=== PATIENT | male | born 1950 | race Caucasian/White ===

== ENCOUNTER → 2020-03-17 12:21 | Outpatient (BNVA) | payer MEDICARE, SELFPAY | PROVIDERS: PCP Nurse Practitioner Family; Visit Provider Nurse Practitioner Family | DX: E11.9 Type 2 diabetes mellitus without complications (principal); I10 Essential (primary) hypertension; E55.9 Vitamin D deficiency, unspecified; R53.83 Other fatigue; E78.2 Mixed hyperlipidemia; L57.0 Actinic keratosis | CPT/HCPCS: 80053; 80061; 81001; 82306; 83036; 84443; 85025 ==

== ENCOUNTER → 2020-03-20 10:20 | Outpatient (BNVA) | payer MEDICARE, SELFPAY | PROVIDERS: PCP Nurse Practitioner Family; Visit Provider Family Medicine | DX: C44.629 Squamous cell carcinoma of skin of left upper limb, including shoulder (principal) | CPT/HCPCS: 88305 ==

== ENCOUNTER → 2020-08-25 11:39 | Outpatient (BNVA) | payer MEDICARE, SELFPAY | PROVIDERS: PCP Nurse Practitioner Family; Visit Provider Nurse Practitioner Family | DX: E11.9 Type 2 diabetes mellitus without complications (principal) | CPT/HCPCS: 80053; 83036; 83735; 84100; 85025 ==

== ENCOUNTER → 2020-10-13 08:48 | Outpatient (BNVA) | payer MEDICARE, SELFPAY | PROVIDERS: PCP Nurse Practitioner Family; Referring Provider Nurse Practitioner Family; Visit Provider Internal Medicine | DX: E11.40 Type 2 diabetes mellitus with diabetic neuropathy, unspecified (principal); E11.649 Type 2 diabetes mellitus with hypoglycemia without coma; E11.65 Type 2 diabetes mellitus with hyperglycemia; E78.5 Hyperlipidemia, unspecified; I10 Essential (primary) hypertension | CPT/HCPCS: 99205 ==

== ENCOUNTER → 2020-11-04 10:12 | Outpatient (BNVA) | payer MEDICARE, SELFPAY | PROVIDERS: PCP Nurse Practitioner Family; Visit Provider Family Medicine | DX: G25.82 Stiff-man syndrome (principal) | CPT/HCPCS: 85651; 86431 ==

== ENCOUNTER → 2020-12-15 08:43 | Outpatient (BNVA) | payer MEDICARE, SELFPAY | PROVIDERS: PCP Nurse Practitioner Family; Visit Provider Internal Medicine | DX: E11.42 Type 2 diabetes mellitus with diabetic polyneuropathy (principal); E11.649 Type 2 diabetes mellitus with hypoglycemia without coma; E11.65 Type 2 diabetes mellitus with hyperglycemia; K27.9 Peptic ulcer, site unspecified, unspecified as acute or chronic, without hemorrhage or perforation; R10.13 Epigastric pain | CPT/HCPCS: 99215 ==

== ENCOUNTER → 2020-12-16 10:35 | Outpatient (BNVA) | payer MEDICARE, SELFPAY | PROVIDERS: PCP Nurse Practitioner Family; Visit Provider Internal Medicine | DX: E11.9 Type 2 diabetes mellitus without complications (principal) | CPT/HCPCS: 83036 ==

== ENCOUNTER → 2021-01-13 08:41 | Outpatient (BNVA) | payer MEDICARE, SELFPAY | PROVIDERS: PCP Nurse Practitioner Family; Visit Provider Internal Medicine | DX: R76.8 Other specified abnormal immunological findings in serum (principal); Z79.899 Other long term (current) drug therapy; Z11.59 Encounter for screening for other viral diseases; G24.9 Dystonia, unspecified; M48.00 Spinal stenosis, site unspecified; L40.9 Psoriasis, unspecified | CPT/HCPCS: 72202; 73120; 80053; 82085; 82310; 82550; 82728; 83540; 83970; 84100; 85025; 86140; 86431; 86704; 86803; 86812; 87340; 99204 ==

== ENCOUNTER 2021-01-13 10:27 | Outpatient (CLI) | payer MEDICARE, SELFPAY ==
--- NOTE | 2021-01-13 10:37 | XR_ITS ---
WS: [id number] TECHNIQUE: 2 views of the right hand CLINICAL INFORMATION: R76.8 - Other specified abnormal immunological findings in serum COMPARISON: None. FINDINGS: Normal metacarpals. Normal MCP joint. Metacarpal heads are normal in appearance. Normal PIP and DIP j oints. No evidence of acute fracture or dislocation. Radiocarpal joint: Normal. Carpal bones: Normal. XR/XR hand RT 2V [id number] IMPRESSION: No significant erosive changes.
--- NOTE | 2021-01-13 10:37 | XR_ITS ---
WS: [id number] TECHNIQUE: 2 views of the left hand CLINICAL INFORMATION: R76.8 - Other specified abnormal immunological findings in serum COMPARISON: None. FINDINGS: Normal metacarpals. Normal MCP joint. Metacarpal heads are normal in appearance. Normal PIP and DIP j oints. No evidence of acute fracture or dislocation. Radiocarpal joint: Normal. Carpal bones: Normal. XR/XR hand LT 2V [id number] IMPRESSION: No significant erosive changes.
--- NOTE | 2021-01-13 10:37 | XR_ITS ---
WS: [id number] SI JOINTS TECHNIQUE: 3 views of the sacroiliac joints CLINICAL INFORMATION: L40.9 - Psoriasis, unspecified COMPARISON: None. FINDINGS: Sacroiliac joints are normal in appearance. Mild degenerative arthritis. No significant erosive naranjo es. XR/XR sacroiliac jts m 3V [id number] IMPRESSION: Unremarkable sacroiliac joints.
== END 2021-01-13 10:28 | disposition home or self-care (01) ==
PROVIDERS: PCP Nurse Practitioner Family; Visit Provider Internal Medicine
DX: R76.8 Other specified abnormal immunological findings in serum (principal); L40.9 Psoriasis, unspecified; Z11.59 Encounter for screening for other viral diseases
CPT/HCPCS: 72202; 73120; 80053; 82085; 82310; 82550; 82728; 83519; 83540; 83970; 84100; 85025; 85651; 86140; 86431; 86704; 86803; 86812; 87340

== ENCOUNTER → 2021-04-16 11:57 | Outpatient (BNVA) | payer MEDICARE, SELFPAY | PROVIDERS: PCP Family Medicine; Visit Provider Nurse Practitioner Family | DX: I10 Essential (primary) hypertension (principal); D64.9 Anemia, unspecified; E11.9 Type 2 diabetes mellitus without complications; E55.9 Vitamin D deficiency, unspecified; Z12.5 Encounter for screening for malignant neoplasm of prostate; J32.9 Chronic sinusitis, unspecified; M50.30 Other cervical disc degeneration, unspecified cervical region; H53.9 Unspecified visual disturbance; R51.9 Headache, unspecified; I95.9 Hypotension, unspecified; G89.29 Other chronic pain; E78.2 Mixed hyperlipidemia | CPT/HCPCS: 80053; 80061; 81003; 82306; 82607; 82728; 82746; 83036; 83550; 83735; 84100; 84439; 84443; 85025; 85651; 86140; G0103 ==

== ENCOUNTER 2021-05-11 07:47 | Outpatient (CLI) | payer MEDICARE, SELFPAY ==
--- NOTE | 2021-05-11 08:00 | MR_ITS ---
WS: [id number] MRI HEAD WITHOUT CONTRAST TECHNIQUE: Sagittal T1, T2 axial, T2 axial FLAIR, axial and coronal T1 images, axial susceptibility w eighted imaging, axial diffusion weighted images, and coronal T2 images were obtained. CLINICAL INFORMATION: H53.9 - Unspecified visual disturbance COMPARISON: None. FINDINGS: No evidence of restricted diffusion to suggest acute ischemia. Ventricular system and basal cisterns are patent. Mild supratentorial white matter changes consistent with small vessel disease in a patien t this age. Mild parenchymal volume loss. Normal posterior fossa. Normal vascular flow voids at the s kull base. No extra-axial fluid collections. No evidence of mass or mass effect. Retention cyst right maxillary sinus. Mild mucosal thickening ethmoid air cells. No hemosiderin on susceptibly weighted images. Normal posterior fossa. Normal vascular flow voids at the skull base. No extra-axial fluid collections. No evidence of mass or mass effect. Mild symmetric atrophy temporal lobes and hippocampal formations. Normal optic chiasm and pituitary infundibulum. No rmal cavernous sinuses and Meckel's cave. MR/MR head wo con* [id number] IMPRESSION: 1. No evidence of restricted diffusion to suggest acute ischemia. 2. Mild small vessel changes with mild parenchymal volume loss. 3. No hemosiderin on susceptibly weighted images. 4. Mild symmetric atrophy temporal lobes and hippocampal formations. 5. Retention cyst right maxillary sinus measuring 1.6 cm.
--- NOTE | 2021-05-11 08:45 | MR_ITS ---
WS: [id number] MRI CERVICAL SPINE NONCONTRAST TECHNIQUE: Sagittal T1, T2 and STIR imaging. Axial T2, gradient, and fiesta imaging. CLINICAL INFORMATION: M50.30 - Other cervical disc degeneration, unspecified ce... COMPARISON: None. FINDINGS: Normal cervical alignment. No high-grade central canal stenosis. Cord signal is normal. C2-C3: Normal. C3-C4: Mild disc osteophytic ridging. Moderate to severe left and moderate right bony foraminal narro wing. C4-C5: Disc osteophyte complex endplate ridging. Moderate left and mild to moderate right bony forami nal narrowing. C5-C6: Disc osteophyte complex with endplate ridging. Mild central canal stenosis. Moderate right and mild left bony foraminal narrowing. Mild facet arthropathy. C6-C7: Disc osteophyte complex with endplate ridging. Shallow central disc osteophyte protrusion. Mil d central canal stenosis. Severe bilateral bony foraminal narrowing. This is worse in the right. C7-T1: Normal. Visualized brain stem structures: Normal. Prevertebral soft tissues: Normal. MR/MR cervical spin wo con* [id number] IMPRESSION: 1. Normal cervical alignment. Cord signal is normal. 2. Mild central canal stenosis C5-C6 and C6-C7 with slight contact of the cerv ical cord at C6-7. 3. Moderate to severe bony foraminal narrowing worse at left C3-4, left C4-5, right C5-6 and bilateral C6-7 worse in the right.
== END 2021-05-11 07:48 | disposition home or self-care (01) ==
LOC: RADSHAW 07:52
PROVIDERS: PCP Family Medicine; Visit Provider Nurse Practitioner Family
DX: M50.30 Other cervical disc degeneration, unspecified cervical region (principal); H53.9 Unspecified visual disturbance; R51.9 Headache, unspecified; M48.02 Spinal stenosis, cervical region
CPT/HCPCS: 70551; 72141

== ENCOUNTER 2021-07-24 13:50 | Outpatient (CLI) | payer MEDICARE, SELFPAY ==
--- NOTE | 2021-07-24 13:57 | USCV_ITS ---
Malachi Zapata Age: 70 Gender: M : 1950 Exam Date: 07/24/2021 14:19 Ordering Phys: Shelton Phillips MD Technologist: EDVIN [place]am Location[place] [facility] [place] [facility] [place]ication: SOB BP: / HR: 70 Rhythm: Sinus Technical Quality: Adequate MEASUREMENTS (Male / Female) Normal Values 2D ECHO LV Diastolic Diameter PLAX 4.0 cm 4.2 - 5.9 / 3.9 - 5.3 cm LV Systolic Diameter PLAX 2.4 cm LV Chamber Size 3.5 cm IVS Diastolic Thickness 1.1 cm 0.6 - 1.0 / 0.6 - 0.9 cm IVS Systolic Thickness 1.3 cm LVPW Diastolic Thickness 1.1 cm 0.6 - 1.0 / 0.6 - 0.9 cm LVPW Systolic Thickness 1.3 cm RV Chamber Size 3.5 cm LVOT Diameter 2.0 cm LV Ejection Fraction 2D Teich 72.1 % LV Ejection Fraction MOD 2C 53.2 % LV Ejection Fraction 2C AL 55.6 % LA Diameter 2.3 cm LA Width 3.4 cm LA Height 3.5 cm RA Width 4.0 cm RA Height 3.4 cm Aorta at Sinotubular Diameter 2.5 cm M-MODE LV Diastolic Diameter MM 4.9 cm 4.2 - 5.9 / 3.9 - 5.3 cm LV Systolic Diameter MM 2.7 cm LV Ejection Fraction MM Teich 75.4 % IVS Diastolic Thickness MM 0.9 cm 0.6 - 1.0 / 0.6 - 0.9 cm IVS Systolic Thickness MM 1.5 cm LVPW Diastolic Thickness MM 1.0 cm 0.6 - 1.0 / 0.6 - 0.9 cm LVPW Systolic Thickness MM 1.9 cm Aortic Annulus Diameter 3.5 cm LA Ao Ratio MM 0.7 DOPPLER AV Peak Velocity 145.0 cm/s LVOT Peak Velocity 109.0 cm/s AV Area Cont Eq vti 2.2 cm squared AV Area Cont Eq pk 2.4 cm squared MV Area PHT 3.7 cm squared Mitral E to A Ratio 1.0 MV E' Velocity 67.0 cm/s TR Peak Velocity 227.4 cm/s TR Peak Gradient 20.7 mmHg TR Mean Velocity 164.5 cm/s TR Mean Gradient 12.2 mmHg TR Velocity Time Integral 72.4 cm Right Atrial Pressure 3.0 mmHg Pulmonary Artery Systolic Pressu 23.7 mmHg PV Peak Velocity 51.0 cm/s RV Acceleration Time 0.1 s RV Ejection Time 0.3 s RV AcT/ET 0.4 FINDINGS Left Ventricle Normal left ventricular size, systolic function and wall thickness, with no regional wall motion abnormalities. Left ventricular ejection fraction is estimated at 65 %. Right Ventricle Upper normal right ventricular size and low normal right ventricular systolic function. Right ventricular systolic pressure 27 mmHg. Right Atrium Normal right atrial size. Left Atrium Mildly increased left atrial size. Mitral Valve Structurally normal mitral valve. No mitral valve stenosis. Mild mitral valve regurgitation. Aortic Valve Structurally normal trileaflet aortic valve. No aortic valve stenosis. No aortic valve regurgitation. Tricuspid Valve Structurally normal tricuspid valve. No tricuspid valve stenosis. Mild tricuspid valve regurgitation. Pulmonic Valve Structurally normal pulmonic valve. Trace pulmonary valve regurgitation. Pericardium No pericardial effusion. Aorta Normal size aortic root and proximal ascending aorta. CONCLUSIONS 1. Normal left ventricular size, systolic function and wall thickness, with no regional wall motion abnormalities. Left ventricular ejection fraction is estimated at 65 %. 2. Upper normal right ventricular size and low normal right ventricular systolic function. 3. Pulmonary artery pressure estimated at 27 mm Hg. 4. Mild mitral valve and tricuspid valve regurgitation. 5. No prior similar studies to compare. Usha Grande MD (Electronically Signed) Final Date: 24 July 2021 21:23 S
--- NOTE | 2021-07-24 15:00 | CTR_ITS ---
PROCEDURE INFORMATION: Exam: CT Chest Without Contrast; Diagnostic Exam date and time: 07/24/2021 3:00 PM Age: 70 years old Clinical indication: Shortness of breath; Patient HX: C/O SOB; Additional info: R06.02 - shortness of breath TECHNIQUE: Imaging protocol: Diagnostic computed tomography of the chest without contrast. Radiation optimization: All CT scans at this facility use at least one of these dose optimization techniques: automated exposure control; mA and/or kV adjustment per patient size (includes targeted exams where dose is matched to clinical indication); or iterative reconstruction. COMPARISON: MR cervical spin wo con* [id number] 05/11/2021 8:02 AM RADIATION DOSE METRICS: Total DLP (mGy-cm): 597.68 FINDINGS: Lungs: Numerous calcified granulomas throughout both lungs. No consolidation. No suspicious masses. Pleural spaces: Unremarkable. No pneumothorax. No pleural effusion. Heart: Unremarkable. No cardiomegaly. No pericardial effusion. Aorta: Unremarkable. No aortic aneurysm. Lymph nodes: Partially calcified mediastinal and hilar lymph nodes are noted suggestive of prior granulomatous disease. Bones/joints: Unremarkable. No acute fracture. Soft tissues: Unremarkable. CT/CT chest wo con [id number] IMPRESSION: 1. No acute findings. 2. Sequela of prior granulomatous disease of the lungs. Radiation Dose CTDIVOL = (mGy): DLP = 597.68 (mGy-cm)
== END 2021-07-24 13:51 | disposition home or self-care (01) ==
PROVIDERS: PCP Family Medicine; Visit Provider Family Medicine
DX: R06.02 Shortness of breath (principal); I08.1 Rheumatic disorders of both mitral and tricuspid valves
CPT/HCPCS: 71250; 93306

== ENCOUNTER → 2021-09-28 09:53 | Outpatient (BNVA) | payer MEDICARE, SELFPAY | PROVIDERS: PCP Family Medicine; Visit Provider Internal Medicine | DX: E11.65 Type 2 diabetes mellitus with hyperglycemia (principal); E11.42 Type 2 diabetes mellitus with diabetic polyneuropathy; E11.649 Type 2 diabetes mellitus with hypoglycemia without coma; K27.9 Peptic ulcer, site unspecified, unspecified as acute or chronic, without hemorrhage or perforation; R10.13 Epigastric pain; G47.00 Insomnia, unspecified; Z79.84 Long term (current) use of oral hypoglycemic drugs | CPT/HCPCS: 99214 ==

== ENCOUNTER → 2021-10-05 09:47 | Outpatient (BNVA) | payer MEDICARE, SELFPAY | PROVIDERS: PCP Family Medicine; Visit Provider Family Medicine | DX: E11.9 Type 2 diabetes mellitus without complications (principal); G47.00 Insomnia, unspecified | CPT/HCPCS: 83036 ==

== ENCOUNTER → 2021-12-21 15:07 | Outpatient (BNVA) | payer MEDICARE, SELFPAY | PROVIDERS: PCP Family Medicine; Visit Provider Family Medicine | DX: E11.9 Type 2 diabetes mellitus without complications (principal) | CPT/HCPCS: 83036 ==

== ENCOUNTER → 2021-12-22 10:28 | Outpatient (BNVA) | payer MEDICARE, SELFPAY | PROVIDERS: PCP Family Medicine; Visit Provider Internal Medicine | DX: E11.65 Type 2 diabetes mellitus with hyperglycemia (principal); E11.42 Type 2 diabetes mellitus with diabetic polyneuropathy; E11.649 Type 2 diabetes mellitus with hypoglycemia without coma; K27.9 Peptic ulcer, site unspecified, unspecified as acute or chronic, without hemorrhage or perforation; R10.13 Epigastric pain; R23.4 Changes in skin texture; Z79.84 Long term (current) use of oral hypoglycemic drugs | CPT/HCPCS: 99214 ==

== ENCOUNTER → 2022-02-03 08:54 | Outpatient (BNVA) | payer MEDICARE, SELFPAY | PROVIDERS: PCP Family Medicine; Visit Provider Internal Medicine | DX: R76.8 Other specified abnormal immunological findings in serum (principal); G24.9 Dystonia, unspecified; G25.2 Other specified forms of tremor; F17.220 Nicotine dependence, chewing tobacco, uncomplicated | CPT/HCPCS: 99214 ==

== ENCOUNTER → 2022-03-12 08:39 | Outpatient (BNVA) | payer MEDICARE, SELFPAY | PROVIDERS: PCP Family Medicine; Visit Provider Internal Medicine | DX: E11.9 Type 2 diabetes mellitus without complications (principal); E78.2 Mixed hyperlipidemia | CPT/HCPCS: 80053; 80061; 83036 ==

== ENCOUNTER → 2022-03-22 08:57 | Outpatient (BNVA) | payer MEDICARE, SELFPAY | PROVIDERS: PCP Family Medicine; Visit Provider Internal Medicine | DX: E11.65 Type 2 diabetes mellitus with hyperglycemia (principal); E11.42 Type 2 diabetes mellitus with diabetic polyneuropathy; E11.649 Type 2 diabetes mellitus with hypoglycemia without coma; K27.9 Peptic ulcer, site unspecified, unspecified as acute or chronic, without hemorrhage or perforation; R10.13 Epigastric pain; R23.4 Changes in skin texture; Z79.84 Long term (current) use of oral hypoglycemic drugs | CPT/HCPCS: 99214 ==

== ENCOUNTER → 2022-06-22 08:09 | Outpatient (BNVA) | payer MEDICARE, SELFPAY | PROVIDERS: PCP Family Medicine; Visit Provider Internal Medicine | DX: E11.65 Type 2 diabetes mellitus with hyperglycemia (principal); E11.649 Type 2 diabetes mellitus with hypoglycemia without coma; E11.42 Type 2 diabetes mellitus with diabetic polyneuropathy; E78.5 Hyperlipidemia, unspecified; R10.13 Epigastric pain; R23.4 Changes in skin texture; Z87.11 Personal history of peptic ulcer disease; Z79.84 Long term (current) use of oral hypoglycemic drugs | CPT/HCPCS: 99214 ==

== ENCOUNTER → 2022-08-05 12:51 | Outpatient (BNVA) | payer MEDICARE, SELFPAY | PROVIDERS: PCP Family Medicine; Visit Provider Internal Medicine | DX: G24.9 Dystonia, unspecified (principal); M54.2 Cervicalgia; M48.00 Spinal stenosis, site unspecified; G25.82 Stiff-man syndrome | CPT/HCPCS: 72072; 72100; 96372; 99214; J1030 ==

== ENCOUNTER → 2022-08-10 12:24 | Outpatient (BNVA) | payer MEDICARE, SELFPAY | PROVIDERS: PCP Family Medicine; Visit Provider Internal Medicine | DX: M32.9 Systemic lupus erythematosus, unspecified (principal); R76.8 Other specified abnormal immunological findings in serum; Z79.899 Other long term (current) drug therapy; E78.5 Hyperlipidemia, unspecified; E11.9 Type 2 diabetes mellitus without complications; E11.65 Type 2 diabetes mellitus with hyperglycemia | CPT/HCPCS: 80053; 80061; 81000; 83036; 85025; 85651; 86140; 86160 ==

== ENCOUNTER → 2022-08-25 10:44 | Outpatient (BNVA) | payer MEDICARE, SELFPAY | PROVIDERS: PCP Family Medicine; Visit Provider Internal Medicine | DX: E11.65 Type 2 diabetes mellitus with hyperglycemia (principal); E11.42 Type 2 diabetes mellitus with diabetic polyneuropathy; E11.649 Type 2 diabetes mellitus with hypoglycemia without coma; E78.5 Hyperlipidemia, unspecified; E78.2 Mixed hyperlipidemia; K27.9 Peptic ulcer, site unspecified, unspecified as acute or chronic, without hemorrhage or perforation; R10.13 Epigastric pain; R23.4 Changes in skin texture; Z79.84 Long term (current) use of oral hypoglycemic drugs | CPT/HCPCS: 99214 ==

== ENCOUNTER → 2022-11-17 09:19 | Outpatient (BNVA) | payer MEDICARE, SELFPAY | PROVIDERS: PCP Family Medicine; Visit Provider Internal Medicine | DX: E11.65 Type 2 diabetes mellitus with hyperglycemia (principal); E78.5 Hyperlipidemia, unspecified | CPT/HCPCS: 80053; 80061; 83036 ==

== ENCOUNTER 2022-12-02 12:40 | Outpatient (RCR) | payer MEDICARE, SELFPAY ==
[2022-11-26 11:18] VITALS: BP 139/74; PULSE 79; RESP 18; TEMP 36.5; O2SAT 98
[2022-11-29 09:02] VITALS: BP 148/78; PULSE 90; RESP 18; TEMP 36.2; O2SAT 93
[2022-11-30 10:29] VITALS: BP 151/86; PULSE 81; RESP 18; TEMP 36.3; O2SAT 94
[2022-12-01 12:50] VITALS: BP 162/84; PULSE 93; RESP 18; TEMP 36.9; O2SAT 95
[2022-12-02 13:02] VITALS: BP 175/96; PULSE 78; RESP 18; TEMP 36.5; O2SAT 97
== END 2022-12-14 23:59 | disposition home or self-care (01) ==
LOC: GILAB 12:40
PROVIDERS: PCP Family Medicine; Visit Provider Family Medicine
DX: G25.82 Stiff-man syndrome (principal)
CPT/HCPCS: 96365; 96366; J1459

== ENCOUNTER → 2023-02-09 09:51 | Outpatient (BNVA) | payer MEDICARE, SELFPAY | PROVIDERS: PCP Family Medicine; Visit Provider Internal Medicine | DX: M06.9 Rheumatoid arthritis, unspecified (principal); R76.8 Other specified abnormal immunological findings in serum; Z79.899 Other long term (current) drug therapy; E11.65 Type 2 diabetes mellitus with hyperglycemia; E11.42 Type 2 diabetes mellitus with diabetic polyneuropathy; E11.649 Type 2 diabetes mellitus with hypoglycemia without coma; E55.9 Vitamin D deficiency, unspecified; E78.2 Mixed hyperlipidemia; K27.9 Peptic ulcer, site unspecified, unspecified as acute or chronic, without hemorrhage or perforation; R10.13 Epigastric pain; Z79.84 Long term (current) use of oral hypoglycemic drugs | CPT/HCPCS: 72040; 99214 ==

== ENCOUNTER → 2023-04-04 08:52 | Outpatient (BNVA) | payer MEDICARE, SELFPAY | PROVIDERS: PCP Family Medicine; Visit Provider Internal Medicine | DX: M06.9 Rheumatoid arthritis, unspecified (principal); R76.8 Other specified abnormal immunological findings in serum; M54.2 Cervicalgia; G24.9 Dystonia, unspecified | CPT/HCPCS: 99214 ==

== ENCOUNTER → 2023-05-12 08:06 | Outpatient (BNVA) | payer MEDICARE, SELFPAY | PROVIDERS: PCP Family Medicine; Visit Provider Internal Medicine | DX: E55.9 Vitamin D deficiency, unspecified (principal); E11.65 Type 2 diabetes mellitus with hyperglycemia | CPT/HCPCS: 80053; 80061; 82043; 83036 ==

== ENCOUNTER → 2023-05-18 10:55 | Outpatient (BNVA) | payer MEDICARE, SELFPAY | PROVIDERS: PCP Family Medicine; Visit Provider Internal Medicine | DX: E11.65 Type 2 diabetes mellitus with hyperglycemia (principal); E11.649 Type 2 diabetes mellitus with hypoglycemia without coma; E11.40 Type 2 diabetes mellitus with diabetic neuropathy, unspecified; E11.42 Type 2 diabetes mellitus with diabetic polyneuropathy; K27.9 Peptic ulcer, site unspecified, unspecified as acute or chronic, without hemorrhage or perforation; E78.2 Mixed hyperlipidemia; Z79.84 Long term (current) use of oral hypoglycemic drugs | CPT/HCPCS: 99214 ==

== ENCOUNTER → 2023-06-29 13:57 | Outpatient (BNVA) | payer MEDICARE, SELFPAY | PROVIDERS: PCP Family Medicine; Visit Provider Nurse Practitioner Family | DX: L81.4 Other melanin hyperpigmentation (principal); D22.5 Melanocytic nevi of trunk; L57.8 Other skin changes due to chronic exposure to nonionizing radiation; L57.0 Actinic keratosis; L82.0 Inflamed seborrheic keratosis | CPT/HCPCS: 17000; 17110; 99213 ==

== ENCOUNTER → 2023-08-23 10:10 | Outpatient (BNVA) | payer MEDICARE, SELFPAY | PROVIDERS: PCP Family Medicine; Visit Provider Internal Medicine | DX: E11.65 Type 2 diabetes mellitus with hyperglycemia (principal); E78.2 Mixed hyperlipidemia; E11.42 Type 2 diabetes mellitus with diabetic polyneuropathy; E11.649 Type 2 diabetes mellitus with hypoglycemia without coma; Z13.31 Encounter for screening for depression; I10 Essential (primary) hypertension; R52 Pain, unspecified; Z79.84 Long term (current) use of oral hypoglycemic drugs; Z79.4 Long term (current) use of insulin | CPT/HCPCS: 99215 ==

== ENCOUNTER → 2023-10-26 16:18 | Outpatient (BNVA) | payer SELFPAY | PROVIDERS: PCP Family Medicine; Visit Provider Internal Medicine | DX: E78.5 Hyperlipidemia, unspecified; E11.65 Type 2 diabetes mellitus with hyperglycemia; E11.40 Type 2 diabetes mellitus with diabetic neuropathy, unspecified; E11.649 Type 2 diabetes mellitus with hypoglycemia without coma; K27.9 Peptic ulcer, site unspecified, unspecified as acute or chronic, without hemorrhage or perforation; R10.9 Unspecified abdominal pain; R23.4 Changes in skin texture | CPT/HCPCS: 80053; 80061; 82043; 83036 ==

== ENCOUNTER → 2023-10-31 08:49 | Outpatient (BNVA) | payer MEDICARE, SELFPAY | PROVIDERS: PCP Family Medicine; Visit Provider Internal Medicine | DX: E11.65 Type 2 diabetes mellitus with hyperglycemia (principal); E78.5 Hyperlipidemia, unspecified; E78.2 Mixed hyperlipidemia; E11.42 Type 2 diabetes mellitus with diabetic polyneuropathy; E11.649 Type 2 diabetes mellitus with hypoglycemia without coma; Z13.31 Encounter for screening for depression; I10 Essential (primary) hypertension; Z79.4 Long term (current) use of insulin; Z79.85 Long-term (current) use of injectable non-insulin antidiabetic drugs | CPT/HCPCS: 99214 ==

== ENCOUNTER → 2024-01-25 08:21 | Outpatient (BNVA) | payer MEDICARE, SELFPAY | PROVIDERS: PCP Family Medicine; Visit Provider Internal Medicine | DX: E11.65 Type 2 diabetes mellitus with hyperglycemia (principal); E78.5 Hyperlipidemia, unspecified | CPT/HCPCS: 80053; 80061; 82043; 83036 ==

== ENCOUNTER → 2024-02-03 11:13 | Outpatient (BNVA) | payer MEDICARE, SELFPAY | PROVIDERS: PCP Family Medicine; Visit Provider Internal Medicine | DX: E11.65 Type 2 diabetes mellitus with hyperglycemia (principal); E78.2 Mixed hyperlipidemia; E11.649 Type 2 diabetes mellitus with hypoglycemia without coma; E11.42 Type 2 diabetes mellitus with diabetic polyneuropathy; Z13.31 Encounter for screening for depression | CPT/HCPCS: 99214 ==

== ENCOUNTER → 2024-05-07 13:03 | Outpatient (BNVA) | payer MEDICARE, SELFPAY | PROVIDERS: PCP Family Medicine; Visit Provider Nurse Practitioner | DX: M25.511 Pain in right shoulder; M25.512 Pain in left shoulder; G89.29 Other chronic pain; Z98.890 Other specified postprocedural states; R29.898 Other symptoms and signs involving the musculoskeletal system | CPT/HCPCS: 73030; 99204 ==

== ENCOUNTER → 2024-05-15 13:15 | Outpatient (BNVA) | payer MEDICARE, SELFPAY | PROVIDERS: PCP Family Medicine; Visit Provider Orthopaedic Surgery | DX: M47.22 Other spondylosis with radiculopathy, cervical region (principal); M54.2 Cervicalgia; E11.65 Type 2 diabetes mellitus with hyperglycemia; E78.2 Mixed hyperlipidemia; E11.649 Type 2 diabetes mellitus with hypoglycemia without coma | CPT/HCPCS: 72040; 80053; 80061; 82044; 83036; 99204 ==

== ENCOUNTER → 2024-05-18 08:17 | Outpatient (BNVA) | payer MEDICARE, SELFPAY | PROVIDERS: PCP Family Medicine; Visit Provider Internal Medicine | DX: I10 Essential (primary) hypertension (principal) | CPT/HCPCS: 80048 ==

== ENCOUNTER → 2024-05-21 11:02 | Outpatient (BNVA) | payer MEDICARE, SELFPAY | PROVIDERS: PCP Family Medicine; Visit Provider Internal Medicine | DX: E78.2 Mixed hyperlipidemia (principal); E11.42 Type 2 diabetes mellitus with diabetic polyneuropathy; E11.65 Type 2 diabetes mellitus with hyperglycemia; E11.649 Type 2 diabetes mellitus with hypoglycemia without coma; Z13.31 Encounter for screening for depression; E87.5 Hyperkalemia; Z79.4 Long term (current) use of insulin | CPT/HCPCS: 99215 ==

== ENCOUNTER 2024-05-21 12:22 | Emergency (ER) | payer MEDICARE, SELFPAY ==
--- NOTE | 2024-05-21 12:28 | ECG_ITS ---
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 Measurements Intervals Schulter Rate: 61 P: 56 WA: 148 QRS: -1 QRSD: 117 T: 20 QT: 386 QTc: 389 Interpretive Statements SINUS RHYTHM LOW QRS VOLTAGE IN PRECORDIAL LEADS [QRS DEFLECTION < 1.0 mV IN CHEST LEADS] POSSIBLE RIGHT VENTRICULAR CONDUCTION DELAY [RSR (QR) IN V1/V2] No previous ECG available for comparison Electronically Signed On 05-21-2024 15:20:53 CDT by Monroe Watson M.D. [id number]
[2024-05-21 12:35] VITALS: BP 96/60; PULSE 66; RESP 17; TEMP 36.4; O2SAT 96; BMI 27.9
[2024-05-21 14:11] LABS: Basophils % 0.3 %; Eosinophils # 0.2 10^3/uL (0.0-0.8); Eosinophils % 2.5 %; Hematocrit 37.5 % (37-53); Lymphocytes % 46.5 %; Mean Corpuscular Hemoglobin 29.1 pg (27-33); Mean Corpuscular Volume 90.8 fl (82-101); Mean Platelet Volume 9.7 fL (7.4-10.4); Monocytes # 0.4 10^3/uL (0.2-0.9); Monocytes % 6.3 %; Neutrophils # 2.82 10^3/uL (1.8-7.7); Neutrophils % 44.2 %; Nucleated Red Blood Cells % 0 %; Platelet Count 166 10^3/cmm (157-399); Red Blood Count 4.13 10^6/uL (3.85-5.65); Red Cell Distribution Width 12.3 % (12.1-15.1); White Blood Count 6.37 10^3/uL (3.29-11.43)
[2024-05-21 14:22] VITALS: BP 106/64; PULSE 61; RESP 15; TEMP 36.5; O2SAT 97
--- NOTE | 2024-05-21 14:34 | W.ED.RECABL ---
HPI - Recheck/Abnormal Lab/Rx General: Chief Complaint: Recheck/Abnormal Lab/Rx Stated Complaint: Dr. 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 3 days ago he had routine labs drawn his potassium came back at 6.2 he is on an DREW inhibitor he is not on any potassium supplementation has not changed or done anything different recently has not recently added or increased his lisinopril. Reviewing his chart does not been a change of his dose anytime recently. Also noting in his chart his creatinine's began elevating last fall I do not see in his office notes any medication changes around that time. He also had a couple of syncopal episodes over the last few months all are associated with postural changes none are associated with any chest pain. They usually resolve with very shortly. He is not had any family members witness any of these episodes. He does not have any associated headache he does not have any loss of bowel or bladder control with these episodes no known history of seizures. [facility] ED PFSH: Medical History Weakness of both shoulders Shoulder pain, bilateral DDD (degenerative disc disease), cervical Prostate cancer screening Neck pain Anemia Vitamin D deficiency Insomnia Dystonia Cellulitis Essential hypertension Diabetes mellitus GERD (gastroesophageal reflux disease) Surgical History History of repair of left rotator cuff No history of previous surgery Family History Other CAD (coronary artery disease) Cancer Diabetes GERD (gastroesophageal reflux disease) Social History Smoking and tobacco/nicotine status: never used tobacco/nicotine Alcohol intake: former Substance/Drug Use: never Course Vital Signs: Vital signs: Vital Signs Temperature 97.7 F 05/21/24 14:22 Pulse Rate 61 05/21/24 14:22 Respiratory Rate 15 05/21/24 14:22 Blood Pressure 106/64 05/21/24 14:22 Pulse Oximetry 97 05/21/24 14:22 Oxygen Delivery Me thod Room Air 05/21/24 14:22 MDM - Recheck/Abnormal Lab/Rx Medical Decision Making Potassium is already improved. I suspect this combination of his lisinopril and likely there was some hemolysis of the sample 3 days ago has not changed anything else. He did report several syncopal episodes with are all associated with postural changes suspect he has some diabetic autonomic neuropathy. Will set him up for a 72-hour Holter and an echo and have him follow-up with his primary care doctor. His blood pressure is a little bit on the low side we will have him cut his lisinopril in half for now follow-up with his primary care doctor to reevaluate his blood pressure within the next 7 to 10 days return if he has further problems. Patient denies any chest pain with these episodes. Medical Records I reviewed the patient's medical records. Lab Data I reviewed the patient's lab results. 05/21/24 13:53 05/21/24 13:53 Laboratory Results WBC 6.37 10^3/uL (3.29-11.43) 05/21/24 13:53 RBC 4.13 10^6/uL (3.85-5.65) 05/21/24 13:53 Hgb 12.00 g/dL (11.27-16.99) 05/21/24 13:53 Hct 37.5 % (37-53) 05/21/24 13:53 MCV 90.8 fl (82-101) 05/21/24 13:53 MCH 29.1 pg (27-33) 05/21/24 13:53 MCHC 32.0 g/dL (30-55) 05/21/24 13:53 RDW 12.3 % (12.1-15.1) 05/21/24 13:53 Plt Count 166 10^3/cmm (157-399) 05/21/24 13:53 MPV 9.7 fL (7.4-10.4) 05/21/24 13:53 Neut % (Auto) 44.2 % 05/21/24 13:53 Lymph % (Auto) 46.5 % 05/21/24 13:53 [place] % (Auto) 6.3 % 05/21/24 13:53 Eos % (Auto) 2.5 % 05/21/24 13:53 Baso % (Auto) 0.3 % 05/21/24 13:53 Neut # (Auto) 2.82 10^3/uL (1.8-7.7) 05/21/24 13:53 Lymph # (Auto) 3.0 10^3/uL (0.8-4.8) 05/21/24 13:53 [place] # (Auto) 0.4 10^3/uL (0.2-0.9) 05/21/24 13:53 Eos # (Auto) 0.2 10^3/uL (0.0-0.8) 05/21/24 13:53 Baso # (Auto) 0.0 10^3/uL (0.0-0.1) 05/21/24 13:53 Nucleated RBC % (auto) 0 % 05/21/24 13:53 Nucleated RBCs # 0.0 /100WBC 05/21/24 13:53 Sodium 136 mmol/L (136-145) 05/21/24 13:53 Potassium 4.8 mmol/L (3.5-5.1) 05/21/24 13:53 Chloride 99 mmol/L (98-107) 05/21/24 13:53 Carbon Dioxide 27 mmol/L (22-29) 05/21/24 13:53 Anion Gap 14.8 (5-19) 05/21/24 13:53 BUN 30 mg/dL (8-23) H 05/21/24 13:53 Creatinine 1.6 mg/dL (0.7-1.2) H 05/21/24 13:53 GFR Calculation Not Reportable 05/21/24 13:53 Glucose 96 mg/dL (65-115) 05/21/24 13:53 Calculated Osmolality 288 mOsm/kg (285-295) 05/21/24 13:53 Calcium 9.3 mg/dL (8.5-10.5) 05/21/24 13:53 Magnesium 2.4 mg/dL (1.7-2.3) H 05/21/24 13:53 Total Bilirubin 0.2 mg/dL (0.15-1.2) 05/21/24 13:53 AST 26 U/L (0-40) 05/21/24 13:53 ALT 12 U/L (0-41) 05/21/24 13:53 Alkaline Phosphatase 70 U/L (40-130) 05/21/24 13:53 Total Protein 7.0 g/dL (6.6-8.7) 05/21/24 13:53 Albumin 4.2 g/dL (3.5-5.2) 05/21/24 13:53 Globulin 2.8 g/dL (1.3-4.6) 05/21/24 13:53 No radiology studies performed this visit Discharge Plan Discharge Patient Disposition: Home Clinical Impression: Orthostasis, Diabetic autonomic neuropathy Condition: Stable Prescriptions: Changed lisinopril 20 mg tablet 10 mg PO DAILY 90 Days Qty: 90 1RF No Action nitroglycerin 0.4 mg tablet, sublingual 0.4 mg SUBLINGUAL Q5M PRN (Reason: chest pain) Qty: 30 2RF Rx Instructions: do not exceed 3 doses per episode diphenhydramine HCl [Benadryl] 25 mg capsule 25 mg PO TID PRN (Reason: allergic reaction) 30 Days Qty: 30 0RF gabapentin 800 mg tablet 800 mg PO TID 90 Days Qty: 270 1RF rosuvastatin 40 mg tablet 40 mg PO DAILY Qty: 90 1RF oxycodone 10 mg tablet 10 mg PO Q6H PRN (Reason: pain) 30 Days Qty: 120 0RF diazepam 10 mg tablet 10 mg PO .bedtime 30 Days Qty: 30 0RF hydrocodone-acetaminophen 10-325 mg tablet 1 tab PO Q6H PRN diclofenac potassium 50 mg tablet 50 mg PO DAILY Qty: 90 0RF albuterol sulfate 90 mcg/actuation HFA aerosol inhaler 1 inh inhalation QID PRN (Reason: shortness of breath or wheezing) Qty: 8.5 6RF pantoprazole 40 mg tablet,delayed release (DR/EC) See Rx Instructions .ROUTE .COMPLEX Qty: 60 1RF Dose Instruction: TAKE ONE TABLET BY MOUTH TWICE DAILY Rx Instructions: TAKE ONE TABLET BY MOUTH TWICE DAILY insulin glargine [Lantus Solostar U-100 Insulin] 100 unit/mL (3 mL) insulin pen 24 unit SUBCUT DAILY 90 Days Qty: 25 0RF nateglinide 120 mg tablet 120 mg PO TID Qty: 270 1RF Rx Instructions: give before meal(s) Discharge Orders: Discharge ED (Routine); Ordered 05/21/24 Ordered By: Emir Grady Discharge Diet: Usual diet Discharge Activity: Increase activity as tolerated Patient Instructions: Opioid Safety, Pain Management Activity Restrictions/Additional Instructions: Thank you for choosing [facility] for your healthcare needs today. It is very important that you follow up as instructed or that you return to the Emergency Department should you have concerns or if your condition changes or worsens in any way. You were seen emergency room for recheck on laboratory studies. Potassium done 3 days ago was elevated however it is normal today suspect this is due to hemolysis of the blood sample. He also noted several episodes where he passed out in the past this is usually related to change in posture. This can also be associated with a diabetic autonomic neuropathy. Recommend that you decrease your lisinopril to 10 mg daily. Will set you up for an outpatient echocardiogram and 48-hour Holter monitor. You should follow-up with your primary care doctor within the next week to reevaluate your blood pressure and other symptoms. You should also have potassium rechecked. Coding Level of Care Code ED Agricultural Chemist for Adriana Marion
[2024-05-21 14:40] LABS: Alanine Aminotransferase 12 U/L (0-41); Albumin Level 4.2 g/dL (3.5-5.2); Alkaline Phosphatase 70 U/L (40-130); Anion Gap 14.8 (5-19); Aspartate Amino Transferase 26 U/L (0-40); Blood Urea Nitrogen 30 mg/dL (8-23); Calcium 9.3 mg/dL (8.5-10.5); Carbon Dioxide 27 mmol/L (22-29); Chloride 99 mmol/L (98-107); Creatinine Clr Calc Pharmacy 47.4258; Globulin 2.8 g/dL (1.3-4.6); Glucose 96 mg/dL (65-115); Magnesium 2.4 mg/dL (1.7-2.3); Osmolality Calculated 288 mOsm/kg (285-295); Potassium 4.8 mmol/L (3.5-5.1); Sodium 136 mmol/L (136-145); Total Bilirubin 0.2 mg/dL (0.15-1.2)
--- NOTE | 2024-05-23 10:52 | DCPLANNER ---
sent message for 72 hour Holter and faxed order for echo to [facility]
--- NOTE | 2024-05-23 13:01 | DCPLANNER ---
faxed scheduling outpatient echo order for er f/u
== END 2024-05-21 16:29 | disposition home or self-care (01) ==
PROVIDERS: Physician Assistant; Emergency Provider Family Medicine
DX: I95.1 Orthostatic hypotension (principal); E11.43 Type 2 diabetes mellitus with diabetic autonomic (poly)neuropathy; Z79.4 Long term (current) use of insulin; I10 Essential (primary) hypertension
CPT/HCPCS: 36415; 80053; 83735; 85025; 93005; 99284

== ENCOUNTER → 2024-06-04 12:52 | Outpatient (BNVA) | payer MEDICARE, SELFPAY | PROVIDERS: PCP Family Medicine; Visit Provider Internal Medicine Cardiovascular Disease | DX: R55 Syncope and collapse (principal); I49.1 Atrial premature depolarization; I49.3 Ventricular premature depolarization; I47.10 Supraventricular tachycardia, unspecified | CPT/HCPCS: 93242 ==

== ENCOUNTER 2024-06-15 07:50 | Outpatient (CLI) | payer MEDICARE, SELFPAY ==
--- NOTE | 2024-06-15 07:53 | MR_ITS ---
WS: [id number] MRI LEFT SHOULDER ARTHROGRAM HISTORY: LEFT shoulder pain. Prior rotator cuff repair. COMPARISON: Radiograph 05/07/2024 TECHNIQUE: Pre and postcontrast imaging. Gadolinium mixture was injected under fluoroscopy. Coronal T 1 fat sat, sagittal T2 fat sat, coronal T2 fat sat, axial proton density, axial T1 nonfat saturation submitted. Prearthrogram: There is significant artifact from the patient's prior rotator cuff repair. Micrometal lic artifacts are also noted. Mild AC joint arthritis. No significant subacromial impingement. Marked thickening of the distal supraspinatus tendon. There is motion artifact and artifact from the hardwa re. No tendon retraction. No muscle atrophy. No muscle edema. Mildly high riding LEFT humeral head. L oss of cartilage with humeral head and glenoid osteophytes. LEFT post arthrogram: Adequate distention of the joint space. There is no extravasation of contrast i nto the subacromial or subdeltoid bursa. There is contrast extending into the superior labrum consist ent with a tear. The remaining labrum although irregular does not appear to be torn. Biceps tendon ap pears appropriate. MR/MR shoulder LT wo/w con [id number] IMPRESSION: 1. Quality this examination is compromised by motion and hardware artifact. 2. Status post prior rotator cuff repair. 3. Mild AC joint arthritis. 4. No rotator cuff tear is identified. There is no extravasation of injected c ontrast external to the joint space. 5. Marked tendinopathy in the distal supraspinatus tendon. 6. Abnormal signal in the superior labrum from a tear.
--- NOTE | 2024-06-15 08:00 | IR_ITS ---
WS: [id number] Left shoulder arthrogram, 06/15/2024 Clinical Data: shoulder pain Comparison: None. Fluoroscopy time: 2min [id number] # of spot films: 1 Findings: With the usual technique, a 22-gauge small spinal needle was inserted into the left shoulder joint. A fter localizing the needle tip with 1 mL of Omnipaque at a concentration of 240 mg/mL, an injection o f 12 mL of dilute gadolinium was done. The shoulder joint shows a normal outline. No evidence of a rotator cuff tear could be seen. IR/IR arthrogram shoulderLT [id number] Impression: Satisfactory injection of a dilute gadolinium into the left shoulder joint for preparation for MR arthrogram.
[2024-06-15] MEDS: iohexol 240 mg/mL 50 mL Btl 20 ML INTRA-ARTI (10:27)
[2024-06-15] MEDS: gadobenate dimeglumine 20 mL vial IV (10:31)
== END 2024-06-15 07:51 | disposition home or self-care (01) ==
LOC: RAD 07:50
PROVIDERS: PCP Family Medicine; Visit Provider Nurse Practitioner
DX: Z98.890 Other specified postprocedural states (principal); G89.29 Other chronic pain; M75.82 Other shoulder lesions, left shoulder; S43.432A Superior glenoid labrum lesion of left shoulder, initial encounter; M25.712 Osteophyte, left shoulder; R93.7 Abnormal findings on diagnostic imaging of other parts of musculoskeletal system; M25.511 Pain in right shoulder
CPT/HCPCS: 23350; 73223; 77002; A9577; Q9966

== ENCOUNTER → 2024-06-18 12:45 | Outpatient (BNVA) | payer MEDICARE, SELFPAY | PROVIDERS: PCP Family Medicine; Visit Provider Nurse Practitioner | DX: M19.012 Primary osteoarthritis, left shoulder (principal); M67.912 Unspecified disorder of synovium and tendon, left shoulder; Z98.890 Other specified postprocedural states | CPT/HCPCS: 20610; 99214; J1100; J2795; J3301 ==

== ENCOUNTER 2024-06-26 12:56 | Outpatient (CLI) | payer MEDICARE, SELFPAY ==
[2024-06-26] MEDS: gadobenate dimeglumine 20 mL vial IV (13:27)
--- NOTE | 2024-06-26 13:45 | MR_ITS ---
WS: [id number] MRI CERVICAL SPINE with and without contrast HISTORY: 05/11/2021 COMPARISON: None available. Technique: Multiplanar, multisequence noncontrast imaging of the cervical spine. Postcontrast MultiHa nce. Slight retrolisthesis of C3, C4 and C5. Disc spaces are mildly desiccated. Mild osteophytic ridging. No fractures or marrow edema. Signal within the cervical cord is normal. Visualized posterior fossa is unremarkable. Craniocervical junction, C1 and C2 relationship, odontoid process and soft tissues are normal. C2-C3: Normal. C3-C4: Mild annular disc bulging with a central disc protrusion and osteophytic ridging. Moderate to severe LEFT foraminal stenosis and facet arthritis. C4-C5: Mild osteophytic ridging. Moderate bilateral foraminal stenosis due to osteophytes. C5-C6: Osteophytic ridging with facet arthritis. Mild central stenosis with moderate bilateral forami nal stenosis, RIGHT greater than LEFT. C6-C7: Mild diffuse osteophytic ridging bilateral paracentral small disc protrusions and facet arthri tis. Mild central stenosis with severe bilateral foraminal stenosis. C7-T1: Normal. No discitis or osteomyelitis. No facet joint enhancement. No mass. MR/MR cervical spine wo/w [id number] IMPRESSION: 1. Multilevel foraminal stenoses predominantly due to osteophytic ridging. Min imal progression since 2020. 2. C3-4: Moderate to severe LEFT foraminal stenosis due to osteophyte and face t disease. 3. C4-5: Moderate bilateral foraminal stenosis. 4. C5-6: Mild central with moderate bilateral foraminal stenosis, RIGHT greate r than LEFT. 5. C6-7: Paracentral small disc protrusions. Mild central and severe bilateral foraminal stenosis. 6. No discitis or osteomyelitis.
== END 2024-06-26 12:57 | disposition home or self-care (01) ==
LOC: RAD 12:56
PROVIDERS: PCP Family Medicine; Visit Provider Orthopaedic Surgery
DX: M99.61 Osseous and subluxation stenosis of intervertebral foramina of cervical region (principal); M50.20 Other cervical disc displacement, unspecified cervical region; M25.78 Osteophyte, vertebrae
CPT/HCPCS: 72156; A9577

== ENCOUNTER 2024-06-27 06:00 | Outpatient (CLI) | payer MEDICARE, SELFPAY | END 2024-06-27 06:01 | disposition home or self-care (01) | LOC: RAD 08-01 12:40 | PROVIDERS: PCP Family Medicine; Visit Provider Internal Medicine | DX: M19.011 Primary osteoarthritis, right shoulder (principal); M75.111 Incomplete rotator cuff tear or rupture of right shoulder, not specified as traumatic; M75.91 Shoulder lesion, unspecified, right shoulder | CPT/HCPCS: 73221; 99214 ==

== ENCOUNTER → 2024-06-29 09:25 | Outpatient (BNVA) | payer MEDICARE, SELFPAY | PROVIDERS: PCP Family Medicine; Visit Provider Nurse Practitioner Family | DX: L81.4 Other melanin hyperpigmentation (principal); D22.5 Melanocytic nevi of trunk; L57.8 Other skin changes due to chronic exposure to nonionizing radiation; L57.0 Actinic keratosis; L82.0 Inflamed seborrheic keratosis | CPT/HCPCS: 17000; 17110; 99213 ==

== ENCOUNTER 2024-07-18 09:49 | Outpatient (CLI) | payer MEDICARE, SELFPAY ==
--- NOTE | 2024-07-18 10:15 | MR_ITS ---
WS: [id number] MRI RIGHT SHOULDER NONCONTRAST TECHNIQUE: Sagittal T2, coronal T1, T2 and proton density imaging. Axial gradient PDE imaging. CLINICAL INFORMATION: shoulder pain COMPARISON: MRI arthrogram 06/27/2024 FINDINGS: Moderate degenerative arthritis AC joint with mild edema. Mild narrowing of the subacromial space wit h impingement distal supraspinatus with tendinopathy. Previous described distal interstitial tear sup raspinatus is similar in appearance. No tendon retraction. Trace fluid in the subacromial-subdeltoid bursa. Tiny insertional tear distal infraspinatus. Normal teres minor. Normal subscapularis. Biceps tendon a ppears intact within the bicipital groove. Intra-articular biceps tendon appears intact. Advanced kevin nt space narrowing of the glenohumeral articulation with hypertrophic spurring and narrowing of the j oint space. Small joint effusion. Posterior labral tear is unchanged. MR/MR shoulder RT wo con* [id number] IMPRESSION: 1. Overall no significant changes compared to previous. 2. Moderate degenerative arthritis AC joint with fluid and edema with impingem ent distal supraspinatus. 3. Tendinopathy distal supraspinatus with small undersurface interstitial tear extending to the glenohumeral joint. No tendon retraction. 4. Tiny insertional tear distal infraspinatus. 5. Biceps tendon intact within the bicipital groove. 6. Chronic appearing posterior labral tear is unchanged. 7. Advanced degenerative arthritis of the glenohumeral joint with hypertrophic changes and subchondral cystic change similar to previous.
== END 2024-07-18 09:50 | disposition home or self-care (01) ==
LOC: RAD 09:49
PROVIDERS: PCP Family Medicine; Visit Provider Nurse Practitioner
DX: M19.011 Primary osteoarthritis, right shoulder (principal); M75.91 Shoulder lesion, unspecified, right shoulder; S43.431A Superior glenoid labrum lesion of right shoulder, initial encounter; X58.XXXA Exposure to other specified factors, initial encounter
CPT/HCPCS: 73221

== ENCOUNTER → 2024-07-24 07:59 | Outpatient (BNVA) | payer MEDICARE, SELFPAY | PROVIDERS: PCP Family Medicine; Visit Provider Orthopaedic Surgery | DX: Z09 Encounter for follow-up examination after completed treatment for conditions other than malignant neoplasm | CPT/HCPCS: 99214 ==

== ENCOUNTER → 2024-07-26 14:49 | Outpatient (BNVA) | payer MEDICARE, SELFPAY | PROVIDERS: PCP Family Medicine; Visit Provider Nurse Practitioner Family | DX: R50.9 Fever, unspecified (principal) | CPT/HCPCS: 87426 ==

== ENCOUNTER → 2024-08-23 11:15 | Outpatient (BNVA) | payer MEDICARE, SELFPAY | PROVIDERS: PCP Family Medicine; Visit Provider Internal Medicine | DX: E11.65 Type 2 diabetes mellitus with hyperglycemia (principal); E78.2 Mixed hyperlipidemia; E11.42 Type 2 diabetes mellitus with diabetic polyneuropathy; E11.649 Type 2 diabetes mellitus with hypoglycemia without coma; Z13.31 Encounter for screening for depression; E87.5 Hyperkalemia; Z79.4 Long term (current) use of insulin | CPT/HCPCS: 99214 ==

== ENCOUNTER → 2024-10-10 08:55 | Outpatient (BNVA) | payer MEDICARE, SELFPAY | PROVIDERS: PCP Family Medicine; Visit Provider Nurse Practitioner | DX: M67.912 Unspecified disorder of synovium and tendon, left shoulder (principal); M19.012 Primary osteoarthritis, left shoulder; Z98.890 Other specified postprocedural states | CPT/HCPCS: 99214 ==

== ENCOUNTER → 2024-12-10 11:41 | Outpatient (BNVA) | payer MEDICARE, SELFPAY | PROVIDERS: PCP Family Medicine; Visit Provider Internal Medicine | DX: E11.65 Type 2 diabetes mellitus with hyperglycemia (principal); E78.2 Mixed hyperlipidemia | CPT/HCPCS: 80053; 80061; 82043; 83036 ==

== ENCOUNTER → 2024-12-14 08:16 | Outpatient (BNVA) | payer MEDICARE, SELFPAY | PROVIDERS: PCP Family Medicine; Visit Provider Internal Medicine | DX: E78.2 Mixed hyperlipidemia (principal); E11.65 Type 2 diabetes mellitus with hyperglycemia; E11.42 Type 2 diabetes mellitus with diabetic polyneuropathy; E11.649 Type 2 diabetes mellitus with hypoglycemia without coma; R97.20 Elevated prostate specific antigen [PSA] | CPT/HCPCS: 99214 ==

== ENCOUNTER → 2025-01-18 09:00 | Outpatient (BNVA) | payer MEDICARE, SELFPAY | PROVIDERS: PCP Family Medicine; Visit Provider Nurse Practitioner | DX: M19.012 Primary osteoarthritis, left shoulder (principal); M67.912 Unspecified disorder of synovium and tendon, left shoulder; Z98.890 Other specified postprocedural states | CPT/HCPCS: 99214 ==

== ENCOUNTER → 2025-02-11 08:16 | Outpatient (BNVA) | payer MEDICARE, SELFPAY | PROVIDERS: PCP Family Medicine; Visit Provider Specialist | DX: M75.111 Incomplete rotator cuff tear or rupture of right shoulder, not specified as traumatic (principal); M19.011 Primary osteoarthritis, right shoulder | CPT/HCPCS: 80053; 81000; 85025 ==

== ENCOUNTER → 2025-03-12 09:34 | Outpatient (BNVA) | payer MEDICARE, SELFPAY | PROVIDERS: PCP Family Medicine; Visit Provider Internal Medicine | DX: E11.65 Type 2 diabetes mellitus with hyperglycemia (principal); E78.2 Mixed hyperlipidemia | CPT/HCPCS: 80053; 80061; 82043; 83036 ==

== ENCOUNTER → 2025-03-15 08:03 | Outpatient (BNVA) | payer MEDICARE, SELFPAY | PROVIDERS: PCP Family Medicine; Visit Provider Internal Medicine | DX: E78.2 Mixed hyperlipidemia (principal); E11.65 Type 2 diabetes mellitus with hyperglycemia; E11.42 Type 2 diabetes mellitus with diabetic polyneuropathy; E11.649 Type 2 diabetes mellitus with hypoglycemia without coma; R03.0 Elevated blood-pressure reading, without diagnosis of hypertension; M19.011 Primary osteoarthritis, right shoulder; M19.012 Primary osteoarthritis, left shoulder; Z98.890 Other specified postprocedural states; M75.111 Incomplete rotator cuff tear or rupture of right shoulder, not specified as traumatic | CPT/HCPCS: 20610; 99214; J1100; J2795; J3301; J9999 ==

== ENCOUNTER → 2025-04-01 09:52 | Outpatient (BNVA) | payer MEDICARE, SELFPAY | PROVIDERS: PCP Family Medicine; Visit Provider Internal Medicine | DX: E11.9 Type 2 diabetes mellitus without complications (principal) | CPT/HCPCS: 80053; 84681; 86337; 86341 ==

== ENCOUNTER → 2025-04-19 07:54 | Outpatient (BNVA) | payer MEDICARE, SELFPAY | PROVIDERS: PCP Family Medicine; Visit Provider Internal Medicine | DX: E11.65 Type 2 diabetes mellitus with hyperglycemia (principal); E78.2 Mixed hyperlipidemia | CPT/HCPCS: 99214 ==

== ENCOUNTER → 2025-05-23 08:40 | Outpatient (BNVA) | payer MEDICARE, SELFPAY | PROVIDERS: PCP Family Medicine; Visit Provider Internal Medicine | DX: E78.2 Mixed hyperlipidemia (principal); E10.9 Type 1 diabetes mellitus without complications | CPT/HCPCS: 99214 ==

== ENCOUNTER → 2025-06-21 08:04 | Outpatient (BNVA) | payer MEDICARE, SELFPAY | PROVIDERS: PCP Family Medicine; Visit Provider Nurse Practitioner | DX: M19.011 Primary osteoarthritis, right shoulder (principal); M19.012 Primary osteoarthritis, left shoulder; M67.912 Unspecified disorder of synovium and tendon, left shoulder; Z98.890 Other specified postprocedural states; M75.111 Incomplete rotator cuff tear or rupture of right shoulder, not specified as traumatic | CPT/HCPCS: 20610; J1100; J2795; J3301; J9999 ==

== ENCOUNTER → 2025-07-01 13:51 | Outpatient (BNVA) | payer MEDICARE, SELFPAY | PROVIDERS: PCP Family Medicine; Visit Provider Nurse Practitioner Family | DX: L81.4 Other melanin hyperpigmentation (principal); D22.5 Melanocytic nevi of trunk; L57.8 Other skin changes due to chronic exposure to nonionizing radiation; L57.0 Actinic keratosis | CPT/HCPCS: 17000; 99213 ==

== ENCOUNTER → 2025-07-17 08:19 | Outpatient (BNVA) | payer MEDICARE, SELFPAY | PROVIDERS: PCP Family Medicine; Visit Provider Internal Medicine | DX: E11.65 Type 2 diabetes mellitus with hyperglycemia (principal); E78.2 Mixed hyperlipidemia | CPT/HCPCS: 80053; 80061; 82043; 83036 ==

== ENCOUNTER → 2025-07-19 07:54 | Outpatient (BNVA) | payer MEDICARE, SELFPAY | PROVIDERS: PCP Family Medicine; Visit Provider Internal Medicine | DX: E78.2 Mixed hyperlipidemia (principal); E10.9 Type 1 diabetes mellitus without complications; Z79.4 Long term (current) use of insulin | CPT/HCPCS: 99214 ==

== ENCOUNTER → 2025-09-27 07:59 | Outpatient (BNVA) | payer MEDICARE, SELFPAY | PROVIDERS: PCP Family Medicine; Visit Provider Nurse Practitioner | DX: M19.011 Primary osteoarthritis, right shoulder (principal); M19.012 Primary osteoarthritis, left shoulder; M67.912 Unspecified disorder of synovium and tendon, left shoulder; M75.111 Incomplete rotator cuff tear or rupture of right shoulder, not specified as traumatic | CPT/HCPCS: 20610; J1100; J2795; J3301; J9999 ==

== ENCOUNTER → 2025-10-07 08:26 | Outpatient (BNVA) | payer MEDICARE, SELFPAY | PROVIDERS: PCP Family Medicine; Visit Provider Internal Medicine | DX: E78.2 Mixed hyperlipidemia (principal); E11.65 Type 2 diabetes mellitus with hyperglycemia | CPT/HCPCS: 80053; 80061; 82043; 83036 ==